=== PATIENT | female | born 1990 | race Caucasian/White ===

== ENCOUNTER 2019-03-30 13:53 | Emergency (ER) | payer OTHER ==
[~2019-03-30] VITALS: Ht 167.6 cm; Wt 52.2 kg
== END 2019-03-30 19:44 | disposition home or self-care (01) ==
LOC: ER 13:53
DX: J03.80 Acute tonsillitis due to other specified organisms (principal)

== ENCOUNTER 2020-09-14 03:09 | Emergency (ER) | payer OTHER ==
[~2020-09-14] VITALS: Ht 167.6 cm; Wt 59.0 kg
[2020-09-14] MEDS ORDERED: KETO10TA2 PO (04:59)
== END 2020-09-14 05:06 | disposition home or self-care (01) ==
LOC: ER 03:09
DX: R07.89 Other chest pain (principal); F06.4 Anxiety disorder due to known physiological condition

== ENCOUNTER 2020-10-07 11:00 | Outpatient (CLI) | payer OTHER ==
[~2020-10-07 11:00] MED LIST: KETO10TA2 PO
== END 2020-10-07 14:50 | disposition home or self-care (01) ==
LOC: OFIC 805 11:00
PROVIDERS: ATTEND Otolaryngology Otology & Neurotology
DX: T17.1XXA Foreign body in nostril, initial encounter (principal); J34.89 Other specified disorders of nose and nasal sinuses

== ENCOUNTER 2020-10-17 12:43 | Emergency (ER) | payer OTHER ==
[~2020-10-17] VITALS: Ht 167.6 cm; Wt 59.0 kg
[2020-10-17] MEDS ORDERED: VITAMIN D3-ALO1 EACH PO (17:32)
[2020-10-17] MEDS ORDERED: VITAMIN C WIT1000 MG PO (17:32)
[2020-10-17] MEDS ORDERED: VISTARIL50 MG PO (17:32)
[2020-10-17] MEDS ORDERED: ACETAMINOPHEN650 M2 PO (17:32)
== END 2020-10-17 17:37 | disposition home or self-care (01) ==
LOC: ER 12:43
DX: U07.1 COVID-19 (principal); B34.9 Viral infection, unspecified

== ENCOUNTER → 2020-10-31 | Outpatient (CLI) | payer OTHER ==
[~2020-10-31] MED LIST changes: +ACETAMINOPHEN650 M2 PO; +VISTARIL50 MG PO; +VITAMIN C WIT1000 MG PO; +VITAMIN D3-ALO1 EACH PO
== END | disposition home or self-care (01) ==
LOC: OFIC 805 10-19 10:45
PROVIDERS: ATTEND Otolaryngology Otology & Neurotology
DX: R09.81 Nasal congestion (principal); T17.1XXA Foreign body in nostril, initial encounter

== ENCOUNTER 2020-11-01 01:28 | Emergency (ER) | payer OTHER ==
[~2020-11-01] VITALS: Ht 167.6 cm; Wt 59.0 kg
== END 2020-11-01 05:53 | disposition home or self-care (01) ==
LOC: ER 01:28
DX: R13.19 Other dysphagia (principal)

== ENCOUNTER → 2020-11-02 | Outpatient (CLI) | payer OTHER | END | disposition home or self-care (01) | LOC: OFIC 805 13:24 | PROVIDERS: ATTEND Otolaryngology Otology & Neurotology | DX: T17.1XXA Foreign body in nostril, initial encounter (principal); J31.0 Chronic rhinitis; F41.8 Other specified anxiety disorders; R06.02 Shortness of breath ==

== ENCOUNTER 2020-11-23 09:43 | Emergency (ER) | payer OTHER ==
[~2020-11-23] VITALS: Ht 167.6 cm; Wt 59.0 kg
[2020-11-23] MEDS ORDERED: VISTARIL25 MG PO (11:53)
[2020-12-01] MEDS ORDERED: HYDROXYZINE PAM50 MG PO (17:36)
[2020-12-01] MEDS ORDERED: VITAMIN C500 MG PO (17:36)
== END 2020-11-23 12:00 | disposition home or self-care (01) ==
LOC: ER 09:43
DX: R06.02 Shortness of breath (principal); Z20.828 Contact with and (suspected) exposure to other viral communicable diseases

== ENCOUNTER → 2020-12-01 | Emergency (ER) | payer OTHER ==
[~2020-12-01] VITALS: Ht 167.6 cm; Wt 54.4 kg
[~2020-12-01] MED LIST changes: +HYDROXYZINE PAM50 MG PO; +VISTARIL25 MG PO; +VITAMIN C500 MG PO
== END | disposition left against medical advice (07) ==
LOC: ER 16:34
DX: Z53.20 Procedure and treatment not carried out because of patient's decision for unspecified reasons (principal)

== ENCOUNTER 2020-12-20 04:11 | Emergency (ER) | payer OTHER ==
[~2020-12-20] VITALS: Ht 167.6 cm; Wt 57.2 kg
== END 2020-12-20 07:52 | disposition home or self-care (01) ==
LOC: ER 04:11
DX: E03.8 Other specified hypothyroidism (principal)

== ENCOUNTER 2021-03-25 06:11 | Emergency (ER) | payer OTHER ==
[~2021-03-25] VITALS: Ht 167.6 cm; Wt 56.7 kg
[2021-03-25] MEDS ORDERED: LEVOTHYROXINE25 MCG (06:22)
[2021-03-25] MEDS ORDERED: ORPHENADRINE C100 MG PO (07:58)
[2021-03-25] MEDS ORDERED: NAPROXEN375 MG PO (07:58)
== END 2021-03-25 08:28 | disposition home or self-care (01) ==
LOC: ER 06:11
DX: M94.0 Chondrocostal junction syndrome [Tietze] (principal); F41.0 Panic disorder [episodic paroxysmal anxiety]

== ENCOUNTER 2021-03-27 01:25 | Emergency (ER) | payer OTHER ==
[~2021-03-27] VITALS: Ht 167.6 cm; Wt 56.7 kg
[~2021-03-27 01:25] MED LIST changes: +LEVOTHYROXINE25 MCG; +NAPROXEN375 MG PO; +ORPHENADRINE C100 MG PO
[2021-03-27] MEDS ORDERED: MOBIC15 MG PO (05:39)
== END 2021-03-27 05:48 | disposition home or self-care (01) ==
LOC: ER 01:25
DX: M94.0 Chondrocostal junction syndrome [Tietze] (principal)

== ENCOUNTER → 2021-04-23 | Emergency (ER) | payer OTHER ==
[~2021-04-23] VITALS: Ht 167.6 cm; Wt 56.7 kg
[~2021-04-23] MED LIST changes: +MOBIC15 MG PO; +SINGULAIR 10MG10 MG PO
== END | disposition home or self-care (01) ==
LOC: ER 04:36
DX: R05 Cough (principal)

== ENCOUNTER 2021-04-27 02:38 | Emergency (ER) | payer OTHER ==
[~2021-04-27] VITALS: Ht 167.6 cm; Wt 56.7 kg
[~2021-04-27 02:38] MED LIST changes: -SINGULAIR 10MG10 MG PO
[2021-04-27] MEDS ORDERED: SINGULAIR 10MG10 MG PO (05:49)
== END 2021-04-27 06:02 | disposition home or self-care (01) ==
LOC: ER 02:38
DX: J45.998 Other asthma (principal)

== ENCOUNTER → 2021-05-04 | Emergency (ER) | payer OTHER ==
[~2021-05-04] MED LIST changes: +SINGULAIR 10MG10 MG PO
== END | disposition left against medical advice (07) ==
LOC: ER 23:48
DX: Z53.20 Procedure and treatment not carried out because of patient's decision for unspecified reasons (principal)

== ENCOUNTER 2021-06-16 18:37 | Emergency (ER) | payer OTHER ==
[~2021-06-16] VITALS: Ht 162.6 cm; Wt 54.4 kg
== END 2021-06-17 01:16 ==
LOC: ER 18:37
DX: R51.9 Headache, unspecified (principal)

== ENCOUNTER 2022-03-03 18:29 | Emergency (ER) | payer OTHER ==
[~2022-03-03] VITALS: Ht 162.6 cm; Wt 59.0 kg
== END 2022-03-03 21:20 | disposition home or self-care (01) ==
LOC: ER 18:29
DX: R07.9 Chest pain, unspecified (principal); M94.0 Chondrocostal junction syndrome [Tietze]

== ENCOUNTER 2022-12-31 20:19 | Emergency (ER) | payer OTHER ==
[~2022-12-31] VITALS: Ht 154.9 cm; Wt 46.3 kg
== END 2023-01-01 00:48 | disposition home or self-care (01) ==
LOC: ER 20:19
DX: M94.0 Chondrocostal junction syndrome [Tietze] (principal); Z88.6 Allergy status to analgesic agent

== ENCOUNTER 2023-03-04 16:53 | Emergency (ER) | payer OTHER ==
[~2023-03-04] VITALS: Ht 160 cm; Wt 52.2 kg
== END 2023-03-04 19:53 | disposition home or self-care (01) ==
LOC: ER 16:53
DX: L02.211 Cutaneous abscess of abdominal wall (principal)

== ENCOUNTER 2023-03-09 18:02 | Emergency (ER) | payer OTHER ==
[~2023-03-09] VITALS: Ht 167.6 cm; Wt 59.0 kg
== END 2023-03-09 20:53 | disposition home or self-care (01) ==
LOC: ER 18:02
DX: L02.211 Cutaneous abscess of abdominal wall (principal)

== ENCOUNTER 2024-08-07 02:48 | Emergency (ER) | payer OTHER ==
[~2024-08-07] VITALS: Ht 165.1 cm; Wt 54.4 kg
[2024-08-07] MEDS ORDERED: KETOROLAC TROMETHAMINE 60 MG VIAL IM STA (03:38)
[2024-08-07] MEDS ORDERED: KETOROLAC TROMETHAMINE 60 MG VIAL IM ONE (03:40)
== END 2024-08-07 03:46 | disposition home or self-care (01) ==
LOC: ER 02:48
DX: M94.0 Chondrocostal junction syndrome [Tietze] (principal)